=== PATIENT | female | born 1945 | race Native Hawaiian/Other Pacific Islander ===

== ENCOUNTER 2017-04-25 12:00 | Outpatient (CLI) | payer OTHER, BC | END 2017-04-25 21:16 | disposition home or self-care (01) | LOC: CT 12:00 | DX: R10.32 Left lower quadrant pain (principal) | CPT/HCPCS: 36415; 82565; 84520; Q9963 ==

== ENCOUNTER 2017-04-30 10:29 | Outpatient (CLI) | payer OTHER, BC | END 2017-04-30 19:16 | disposition home or self-care (01) | LOC: EDSTATUS 10:29 → ED 10:29 → RAD 10:29 | DX: T18.3XXD Foreign body in small intestine, subsequent encounter (principal) ==

== ENCOUNTER 2017-05-07 16:22 | Outpatient (CLI) | payer OTHER, BC | END 2017-05-07 16:57 | disposition short-term general hospital (02) | LOC: AMB 16:22 | DX: M25.552 Pain in left hip (principal); M79.605 Pain in left leg; W18.39XA Other fall on same level, initial encounter; Y92.098 Other place in other non-institutional residence as the place of occurrence of the external cause | CPT/HCPCS: A0425; A0427 ==

== ENCOUNTER 2018-05-10 10:49 | Emergency (ER) | payer OTHER, BC ==
[~2018-05-10] VITALS: Ht 157.5 cm; Wt 50.3 kg
[2018-05-10 14:50] LABS: PLATELET COUNT 281 K/uL (152-353)
[2018-05-10 14:54] LABS: POTASSIUM 2.5 mmol/L (3.6-5.2)
[2018-05-10 15:52] VITALS: BP 190/81; TEMP 98.5
== END 2018-05-10 15:56 | disposition home or self-care (01) ==
LOC: ED 10:49
PROVIDERS: Emergency Medicine
DX: E87.6 Hypokalemia (principal); R53.83 Other fatigue
CPT/HCPCS: 36415; 80053; 81000; 85027; 96360; 99283

== ENCOUNTER 2018-05-29 10:44 | Outpatient (CLI) | payer OTHER, BC ==
[2018-05-29 11:00] LABS: PLATELET COUNT 265 K/uL (152-353)
[2018-05-29 11:12] LABS: POTASSIUM 4.4 mmol/L (3.6-5.2)
== END 2018-05-29 22:09 | disposition home or self-care (01) ==
LOC: LABW 10:44
PROVIDERS: Nurse Practitioner
DX: M79.18 Myalgia, other site (principal)
CPT/HCPCS: 36415; 80053; 83735; 85027; 85651; 86140

== ENCOUNTER 2019-06-20 20:08 | Outpatient (CLI) | payer OTHER, BC ==
[2019-06-20] MEDS ORDERED: BUT/APAP/CA3 PO (21:01)
[2019-06-20] MEDS ORDERED: POT CL MICRO20 MEQ PO (21:01)
[2019-06-20] MEDS ORDERED: CARAFATE1 GM PO (21:02)
[2019-06-20] MEDS ORDERED: ACID CONTROL20 MG PO (21:03)
[2019-06-20] MEDS ORDERED: ZOFRAN8 MG PO (21:04)
[2019-06-20] MEDS ORDERED: DICYCLOMINE HYD20 MG PO (21:05)
[2019-06-20] MEDS ORDERED: BENICAR HCT1 TAB PO (21:06)
[2019-06-20] MEDS ORDERED: ESCITALOPRAM20 MG PO (21:06)
[2019-06-20] MEDS ORDERED: ABACAVIR SULFAT1 TAB PO (21:09)
[2019-06-20] MEDS ORDERED: BUDE1AER5 INH (21:10)
== END 2019-06-20 20:19 | disposition short-term general hospital (02) ==
LOC: AMB 20:08
DX: R41.82 Altered mental status, unspecified (principal); M54.5 Low back pain; R51 Headache; W18.39XA Other fall on same level, initial encounter; Y92.012 Bathroom of single-family (private) house as the place of occurrence of the external cause
CPT/HCPCS: A0425; A0427

== ENCOUNTER 2019-06-20 20:22 | Emergency (ER) | payer OTHER, BC ==
[~2019-06-20] VITALS: Ht 157.5 cm; Wt 45.4 kg
[2019-06-20 20:22] VITALS: TEMP 97
[2019-06-20] MEDS ORDERED: POT CL MICRO20 MEQ PO (21:01)
[2019-06-20] MEDS ORDERED: BUT/APAP/CA3 PO (21:01)
[2019-06-20] MEDS ORDERED: CARAFATE1 GM PO (21:02)
[2019-06-20] MEDS ORDERED: ACID CONTROL20 MG PO (21:03)
[2019-06-20] MEDS ORDERED: ZOFRAN8 MG PO (21:04)
[2019-06-20] MEDS ORDERED: DICYCLOMINE HYD20 MG PO (21:05)
[2019-06-20] MEDS ORDERED: ESCITALOPRAM20 MG PO (21:06)
[2019-06-20] MEDS ORDERED: BENICAR HCT1 TAB PO (21:06)
[2019-06-20] MEDS ORDERED: ABACAVIR SULFAT1 TAB PO (21:09)
[2019-06-20] MEDS ORDERED: BUDE1AER5 INH (21:10)
[2019-06-20 21:19] LABS: PLATELET COUNT 200 K/uL (152-353)
[2019-06-20 21:43] LABS: POTASSIUM 3.3 mmol/L (3.6-5.2); SODIUM 142 mmol/L (136-145)
[2019-06-21 01:08] VITALS: BP 150/61
== END 2019-06-21 01:09 | disposition home or self-care (01) ==
LOC: ED 20:22
PROVIDERS: Family Medicine
DX: R41.82 Altered mental status, unspecified (principal); E87.6 Hypokalemia; W18.39XA Other fall on same level, initial encounter; Y92.002 Bathroom of unspecified non-institutional (private) residence as the place of occurrence of the external cause
CPT/HCPCS: 51702; 80053; 80307; 80329; 81000; 82550; 84484; 85027; 93005; 99283